=== PATIENT | male | born 2000 | race Hispanic/Latino ===

== ENCOUNTER 2024-06-20 12:24 | Emergency (ER) | payer SELFPAY ==
[~2024-06-20] VITALS: Ht 177.8 cm; Wt 102.6 kg
[2024-06-20] VITALS (10 sets, daily range): BP systolic 107–146; BP diastolic 60–84
[~2024-06-20 12:24] MED LIST: ZOFRAN4 MG/TAB PO
[2024-06-20] MEDS ORDERED: ONDANSETRON HCl 4 MG/2 ML SDV IV STA (12:53)
[2024-06-20] MEDS ORDERED: SODIUM CHLORIDE 0.9% 1,000 ML IV STA (12:53)
[2024-06-20] MEDS ORDERED: FAMOTIDINE 10MG/ML 2ML SDV IV ONE (12:55)
[2024-06-20] MEDS ORDERED: Pantoprazole Sodium 40 MG VIAL (Protonix) IV ONE (12:55)
[2024-06-20] MEDS ORDERED: KETOROLAC TROMETHAMINE 30 MG/ML SDV IV STA (13:21)
[2024-06-20 13:22] LABS: BASO% 0.3 % (0-3); EOS% 1.4 % (0-8); HEMATOCRIT 44.2 % (39.0-50.0); IMMATURE GRANULOCYTES 0.1 % (0.0-5.0); LYMPH% 18.1 % (15-41); MEAN CORPUSCULAR HGB 30.7 pG CALC (26.0-32.0); MEAN CORPUSCULAR HGB CONC 33.9 g/dL CAL (32.0-36.0); MONO% 3.6 % (2-13); NEUT# 6.11 thou/uL (1.82-7.42); NEUT% 76.5 % (42-76); RED BLOOD COUNT 4.89 mill/uL (4.70-6.10); RED CELL DISTRI WIDTH 11.9 % (11.5-15.5)
[2024-06-20 13:23] LABS: MEAN CELL VOLUME 90.4 fL CALC (80.0-100.0)
[2024-06-20 13:42] LABS: ALBUMIN 4.5 g/dL (3.2-5.0); CREATININE 0.8 mg/dL (0.7-1.3); POTASSIUM 3.8 mmol/l (3.5-5.1); TOTAL PROTEIN 7.5 g/dL (6.3-8.2)
[2024-06-20 13:43] LABS: BILIRUBIN, TOTAL 0.8 mg/dL (0.2-1.3)
[2024-06-20 14:06] LABS: URINE BLOOD DIPSTICK Negative (NEGATIVE); URINE COLOR Yellow; URINE GLUCOSE - DIPSTICK Negative (NEGATIVE); URINE KETONE 40 mg/dL (NEGATIVE); URINE LEUK ESTERASE Negative (NEGATIVE); URINE NITRITE - DIPSTICK Negative (Negative); URINE PROTEIN - DIPSTICK Negative (NEG-TRACE); URINE SPECIFIC GRAVITY 1.025; URINE UROBILINOGEN - DIPSTICK 0.2 E.U./dL (0.2)
[2024-06-20] MEDS ORDERED: MIRALAX17 GM/SCOO PO (17:39)
[2024-06-20] MEDS ORDERED: NAPROXEN500 MG PO (17:39)
[2024-06-20] MEDS ORDERED: PROTONIX40 M2 PO (17:39)
[2024-06-20] MEDS ORDERED: TRAMADOL HYDROC50 M1 PO (17:40)
[2024-06-20] MEDS ORDERED: PENICILLN VK500 MG PO (17:49)
== END 2024-06-20 17:54 | disposition home or self-care (01) | DRG 392 ==
LOC: ED 12:24
PROVIDERS: Nurse Practitioner
DX: K59.00 Constipation, unspecified (principal); K04.7 Periapical abscess without sinus; S02.5XXA Fracture of tooth (traumatic), initial encounter for closed fracture; X58.XXXA Exposure to other specified factors, initial encounter
CPT/HCPCS: J2405; J2470; Q9967